=== PATIENT | male | born 1995 | race Two or more races ===

== ENCOUNTER 2017-09-12 12:25 | Emergency (ER) | payer OTHER ==
[2017-09-12] MEDS ORDERED: Ketorolac INJ* 60 MG/2 ML VIAL IM ONE (14:15)
[2017-09-12] MEDS ORDERED: Ketorolac INJ* 60 MG/2 ML VIAL ONE (14:16)
--- NOTE | 2017-09-12 14:24 | RAD ---
Indication: Pain at the top of the LEFT shoulder post fall. Comparison: No relevant prior exams available [place] [facility] [place] [place]. Technique: Internal rotation AP, external rotation Grashey, scapular Y, axillary views LEFT shoulder Report: Normal acromioclavicular and glenohumeral joint alignment. Negative for fracture. No significant arthropathic change evident. Unremarkable soft tissue contours. IMPRESSION: Negative radiographic exam of the LEFT shoulder.
[2017-09-12 15:25] VITALS: BP 111/74
--- NOTE | 2017-09-13 10:51 | ED ---
Mony Miguel Edward, scribed for Abhilash Shrestha MD on 09/12/17 at 1358 . Upper Extremity Pain - HPI Summary HPI Summary: 22 y/o male presents to the ED c/o severe R shoulder pain s/p fall earlier today. The pain is rated 7/10 in severity. Pt is unable to move his R shoulder secondary to pain. Pt is otherwise asymptomatic. - History of Current Complaint Chief Complaint: EDShoulderClavicAllan Stated Complaint: LT SHOULDER INJURY Time Seen by Provider: 09/12/17 13:49 Hx Obtained From: Patient Mechanism Of Injury: Fall From A Standing Position Onset/Duration: Started Hours Ago Timing: Constant Pain Location: Shoulder - L shoulder Aggravating Factor(s): Movement Alleviating Factor(s): Nothing Associated Signs & Symptoms: Positive: Other - decreased ROM @ L shoulder - Allergies/Home Medications Allergies/Adverse Reactions: Allergies Allergy/AdvReac Type Severity Reaction Status Date / Time No Known Allergies Allergy Verified 09/12/17 12:46 PMH/Surg Hx/FS Hx/Imm Hx Previously Healthy: No Endocrine/Hematology History: Denies: Hx Diabetes Cardiovascular History: Denies: Hx Myocardial Infarction Infectious Disease History: No Infectious Disease History: Denies: Traveled Outside the [place] in Last 30 Days - Family History Known Family History: Positive: None - Social History Occupation: Student Alcohol Use: Occasionally Hx Substance Use: Yes Substance Use Type: Reports: Marijuana Hx Tobacco Use: Yes Smoking Status (MU): Current Some Day Smoker Review of Systems Constitutional: Negative Eyes: Negative ENT: Negative Cardiovascular: Negative Respiratory: Negative Gastrointestinal: Negative Genitourinary: Negative Positive: Arthralgia - L shoulder, Decreased ROM - L shoulder Skin: Negative Neurological: Negative Psychological: Normal All Other Systems Reviewed And Are Negative: Yes Physical Exam - Summary Physical Exam Summary: VITAL SIGNS: Reviewed. GENERAL: Patient is a well-developed and nourished male who is lying comfortable in the stretcher. Patient is not in any acute respiratory distress. HEAD AND FACE: No signs of trauma. No ecchymosis, hematomas or skull depressions. No sinus tenderness. EYES: PERRLA, EOMI x 2, No injected conjunctiva, no nystagmus. EARS: Hearing grossly intact. Ear canals and tympanic membranes are within normal limits. MOUTH: Oropharynx within normal limits. NECK: Supple, trachea is midline, no adenopathy, no JVD, no carotid bruit, no c- spine tenderness, neck with full ROM. CHEST: Symmetric, no tenderness at palpation LUNGS: Clear to auscultation bilaterally. No wheezing or crackles. CVS: Regular rate and rhythm, S1 and S2 present, no murmurs or gallops appreciated. ABDOMEN: Soft, non-tender. No signs of distention. No rebound no guarding, and no masses palpated. Bowel sounds are normal. EXTREMITIES: Decreased ROM in L shoulder secondary to pain. No deformities seen as the pt is dressed. NEURO: Alert and oriented x 3. No acute neurological deficits. Speech is normal and follows commands. SKIN: Dry and warm Triage Information Reviewed: Yes Vital Signs On Initial Exam: Initial Vitals Temp Pulse Resp BP Pulse Ox 98.8 F 75 16 103/81 98 09/12/17 12:30 09/12/17 12:30 09/12/17 12:30 09/12/17 12:30 09/12/17 12:30 Vital Signs Reviewed: Yes Diagnostics - Vital Signs Vital Signs Temp Pulse Resp BP Pulse Ox 09/12/17 12:30 98.8 F 75 16 103/81 98 - Laboratory Lab Statement: Any lab studies that have been ordered have been reviewed, and results considered in the medical decision making process. - Radiology Shoulder XR Xray Interpretation: No Acute Changes - Negative radiographic exam of L shoulder Radiology Interpretation Completed By: Radiologist - ED physician reviews and agrees Course/Dx - Course Assessment/Plan: 22 y/o male presents to the ED c/o severe R shoulder pain s/p fall earlier today. The pain is rated 7/10 in severity. Pt is unable to move his R shoulder secondary to pain. Pt is otherwise asymptomatic. SHOULDER XR SHOWS negative radiographic exam of the L shoulder. Pt given toradol for pain and pain improved. Since there is no fracture the pt will be d/c home with f/u pcp. If pain continues the pt was instructed to return to the ED for further workup and mangament. Pt is hemodynamically stable, A&Ox3 - Diagnoses Provider Diagnoses: Shoulder pain, left Discharge - Discharge Plan Condition: Stable Disposition: HOME Prescriptions: Naproxen [Naproxen 500 mg] 500 mg PO BID PRN #20 tablet PRN Reason: Pain Patient Education Materials: Fall Prevention (ED) Referrals: [facility] - Pedro VALENTINE [Primary Care Provider] - 4 Days (PLEASE F/U IN 3-5 DAYS) The documentation as recorded by the Mony lehman Edward accurately reflects the service I personally performed and the decisions made by , Abhilash Shrestha MD.
== END 2017-09-12 15:25 | disposition home or self-care (01) ==
LOC: ED 12:25
DX: M25.512 Pain in left shoulder (principal); M25.511 Pain in right shoulder; Z72.0 Tobacco use
CPT/HCPCS: 96372; 99282; J1885